=== PATIENT | male | born 1965 | race Two or more races ===

== ENCOUNTER 2016-09-22 00:04 | Inpatient (IN) | payer OTHER ==
[~2016-09-22] VITALS: Ht 180.3 cm; Wt 81.6 kg
--- NOTE | 2016-09-22 00:04 | NUR ---
RENÉ ALS TO ER BED 1
[2016-09-22 00:09] VITALS: BP 115/79
--- NOTE | 2016-09-22 00:17 | NUR ---
PT IS A 51Y/M BIBA C/O SYNCOPAL EPISODE X2 @ AROUND 2330.
--- NOTE | 2016-09-22 01:19 | NUR ---
Patient being evaluated by DR. SANDOVAL at bedside.
[2016-09-22] MEDS ORDERED: MORPHINE SULFATE 2 MG/ML SYR IVP PRN (01:30)
[2016-09-22] MEDS ORDERED: ACETAMINOPHEN 325 MG TAB PO PRN (01:30)
[2016-09-22] MEDS ORDERED: ONDANSETRON 4 MG/2 ML VIAL IVP PRN (01:30)
--- NOTE | 2016-09-22 02:04 | NUR ---
Patient will be admitted to care of DR. NUNES. Admited to TELEMETRY. Will go to room 121A. Belongings list completed. Report to MICK CHAPARRO.
[2016-09-22 02:10] VITALS: BP 109/82
--- NOTE | 2016-09-22 02:10 | NUR ---
PT ADMIT DX SYNCOPE PT IS AWAKE ALERT ORIENTED UPON ADMISSION PT DENIES PAIN,SKIN ASSESSMENT DONE WITH EDDIE HEMPHILL SKIN IS CURRENTLY INTACT.IV ACCESS TO RT AC G#18 INTACT,PT EDUCATED ON SAFETY AND FALL PRECAUTIONS AND ORIENTED TO CALL AND TO HIS ROOM,PT VERBALIZES UNDERSTANDING TO CALL USING THE CALL LIGHT RETURN DEMO DONE BY THE PATIENT.PT WAS PROVIDED WITH A URINAL AND WILL CONTINUE TO BE OBSERVED.PLAN OF CARE DISCUSSED WITH THE PATIENT.WILL CONTINUE TO MONITOR.
--- NOTE | 2016-09-22 03:05 | NUR ---
Patient's Plan of Care was discussed and reviewed with FOLDING MACHINE TENDER: MICK Drake
--- NOTE | 2016-09-22 04:00 | NUR ---
PT IS CURRENTLY RESTING IN BED DENIES PAIN CALL LIGHT WITHIN REACH WILL CONTINUE TO MONITOR.
[2016-09-22 04:14] VITALS: BP 105/63
--- NOTE | 2016-09-22 06:28 | NUR ---
PT SLEEPING WELL NO COMPLAINS OF PAIN OF DISCOMFORT.NO SYNCOPAL EPISODES.PT CONTINUES TO BE MONITORED.PT ABLE T MAKE NEEDS KNOWN.CALL LIGHT WITHIN REACH.
--- NOTE | 2016-09-22 07:26 | NUR ---
PT STABLE REPORT ENDORSED TO EDDIE JARAMILLO SHE WILL RESUME CARE OF THE PATIENT.
--- NOTE | 2016-09-22 07:27 | NUR ---
RECEIVED PT FROM EDDIE BARTON ASLEEP BUT EASILY AWAKEN, AAOX4, WITH NO S/S OF RESPIRATORY DISCOMFORT. WITH IV ACCESS ON RIGHT AC 18G ON SALINE LOCK, PATENT AND INTACT. SKIN IS INTACT. DISCUSSED PLAN OF CARE, PT VERBALIZED UNDERSTANDING. CALL LIGHT WIHTIN REACH, WILL CONTINUE TO MONITOR.
[2016-09-22 08:00] VITALS: BP 113/78
[2016-09-22] MEDS ORDERED: ENOXAPARIN 40 MG/0.4 ML SYR SUBQ SCH (09:00)
--- NOTE | 2016-09-22 10:30 | NUR ---
PT AWAKE TALKING ON HIS PHONE. NO S/S OF DISTRESS, CALL LIGHT WITHIN REACH, WILL CONTINUE TO MONITOR.
[2016-09-22 12:00] VITALS: BP 118/77
--- NOTE | 2016-09-22 12:10 | NUR ---
PT ON VEGETARIAN DIET, FNS INFORMED.
--- NOTE | 2016-09-22 12:16 | NUR ---
PATIENT HAS BEEN SCREENED AND CATEGORIZED MODERATE NUTRITION RISK. PATIENT WILL BE SEEN WITHIN 3-5 DAYS OF ADMISSION. 09/25/16 - 09/27/16 CAROLYNN CHRISTINE; AGGIE, RD
--- NOTE | 2016-09-22 14:16 | NUR ---
PT ASLEEP NO SIGN OF DISTRESS AT THIS TIME. ALL NEEDS MET, WILL CONTINUE TO MONITOR.
[2016-09-22] MEDS ORDERED: CIPRO500 MG PO (15:50)
[2016-09-22 16:00] VITALS: BP 126/82
--- NOTE | 2016-09-22 17:10 | NUR ---
PT AWAKE NO SIGN OF DISCOMFORT. ALL NEEDS MET AT THIS TIME. CALL LIGHT WIHTIN REACH, WILL CONTINUE TO MONITOR.
[2016-09-22] MEDS ORDERED: INFLUENZA VIRUS VACCINE QUAD 0.5 ML SYR IMVAC ONE (17:49)
--- NOTE | 2016-09-22 18:20 | NUR ---
DISCHARGE INSTRUCTIONS AND PRESCRIPTION GIVEN, PT VERBALIZED UNDERSTANDING. ID WRISTBAND, TELE AND IV ACCESS REMOVED, CATHETER TIP INTACT. PT LEFT UNIT ON A WHEELCHAIR ACCOMPANIED BY QA AUTOMATION DEVELOPER IN STABLE CONDITION
[2016-09-23] MEDS ORDERED: INFLUENZA VIRUS VACCINE QUAD 0.5 ML SYR IMVAC SCH (09:00)
--- NOTE | 2016-09-24 08:28 | NUR ---
RETRO REVIEW FAXED TO [facility] [phone] PHONE JANUARY [phone]
== END 2016-09-22 18:20 | disposition home or self-care (01) | DRG 463 ==
LOC: MED 00:04 → MTU 01:35
PROVIDERS: ADMIT Hospitalist; ATTEND Hospitalist
DX: N39.0 Urinary tract infection, site not specified (principal); R55 Syncope and collapse; I10 Essential (primary) hypertension; L50.0 Allergic urticaria; D72.829 Elevated white blood cell count, unspecified; R21 Rash and other nonspecific skin eruption; R73.9 Hyperglycemia, unspecified; Z98.49 Cataract extraction status, unspecified eye